=== PATIENT | female | born 1950 | race Caucasian/White ===

== ENCOUNTER 2016-08-25 19:15 | Inpatient (IN) | payer MEDICARE, OTHER ==
[2016-08-25] MEDS ORDERED: NITROGLYCERIN-D5W PMX 50 MG in DEXTROSE/WATER 1 250ML.BAG IV ONE (19:24)
--- NOTE | 2016-08-25 19:30 | ED ---
Chest Pain HPI - General Stated Complaint: Chest pain Time Seen by Provider: 08/25/16 19:15 Source: patient, RN/MD, EMS, RN notes reviewed, old records reviewed Mode of arrival: EMS - History of Present Illness Initial Comments: This is a 66-year-old female with a history of hypertension and hyperlipidemia who started developing left-sided lower sternal pain today at about 9 AM. She states is about 2/10 in severity. She took some aspirin a day give better but then ROM 1:30 today it recurred. Of note she is grieving for the of her 48-year-old daughter from a heart attack in. She also does state his strong cardiac history including her 41-year-old son grandparents and other family members but never her. She was seen at [facility] and workup was started. She was noted have a initial troponin 0.016 a 3 hour repeat was 0.109. Additionally she did have some nonspecific inferior lateral changes were noted there were also nonspecific. Some evidence of LVH noted. The patient was transferred here for further evaluation. She states her pain was about 1/10 in severity she has no other symptoms at this time. Patient does not smoke does not drink alcohol or shoulder pop. MD Complaint: chest pain - Related Data Home Medications Medication Instructions Recorded Confirmed Aspirin EC [Ecotrin Low Dose] 81 mg PO HS 08/25/16 08/25/16 Bisoprolol-Hctz 10-6.25 mg [Ziac 1 tab PO DAILY 08/25/16 08/25/16 10-6.25] Cholecalciferol [Vitamin D3] 2,000 unit PO HS 08/25/16 08/25/16 Folic Acid 1 mg PO DAILY 08/25/16 08/25/16 Niacin 500 mg PO HS 08/25/16 08/25/16 Rosuvastatin Calcium [Crestor] 40 mg PO HS 08/25/16 08/25/16 Ubidecarenone [Co Q-10] 100 mg PO HS 08/25/16 08/25/16 Allergies Allergy/AdvReac Type Severity Reaction Status Date / Time No Known Allergies Allergy Verified 08/25/16 20:00 Review of Systems ROS Statement: Those systems with pertinent positive or pertinent negative responses have been documented in the HPI. ROS Other: All systems not noted in ROS Statement are negative. EKG Findings - EKG Results: EKG: interpreted by CHER, sinus rhythm (Sinus rhythm with a rate of 69 OK interval 138 QRS duration 84 QT/QTC of 46/435 voltage criteria for LVH. No definite acute changes there appears be no change from the 2 EKG submitted from [facility]) General Exam - General Exam Comments Initial Comments: This is a well-developed well-nourished awake alert oriented 3 female General appearance: alert, in no apparent distress Head exam: Present: atraumatic, normocephalic, normal inspection Eye exam: Present: normal appearance, PERRL, EOMI. Absent: scleral icterus, conjunctival injection, periorbital swelling ENT exam: Present: normal exam, mucous membranes moist Neck exam: Present: normal inspection. Absent: tenderness, meningismus, lymphadenopathy Respiratory exam: Present: normal lung sounds bilaterally. Absent: respiratory distress, wheezes, rales, rhonchi, stridor Cardiovascular Exam: Present: regular rate, normal rhythm, normal heart sounds. Absent: systolic murmur, diastolic murmur, rubs, gallop, clicks GI/Abdominal exam: Present: soft, normal bowel sounds. Absent: distended, tenderness, guarding, rebound, rigid Extremities exam: Present: normal inspection, full ROM, normal capillary refill. Absent: tenderness, pedal edema, joint swelling, calf tenderness Back exam: Present: normal inspection Neurological exam: Present: alert, oriented X3, CN II-XII intact Psychiatric exam: Present: normal affect, normal mood Skin exam: Present: warm, dry, intact, normal color. Absent: rash Course Vital Signs 08/25/16 08/25/16 08/25/16 19:15 19:37 19:55 Temperature 98.9 F Pulse Rate 68 60 65 Respiratory 20 16 18 Rate Blood Pressure 207/86 200/90 181/81 O2 Sat by Pulse 98 95 94 L Oximetry 08/25/16 19:57 Temperature Pulse Rate 63 Respiratory 18 Rate Blood Pressure 178/81 O2 Sat by Pulse 95 Oximetry Chest Pain MDM - MDM I did review the charting for about a by the transferring hospital. Patient currently feels good she will be admitted I did discuss case with the hospitalist cardiology will be consulted/ notified Disposition Clinical Impression: Chest pain, Non-ST elevation myocardial infarction (NSTEMI) Disposition: ADMITTED IP TO THIS HOSP Condition: Serious
[2016-08-25] MEDS: HEPARIN SODIUM,PORCINE/D5W PMX 25,000 UNIT in DEXTROSE/WATER 1 500ML.BAG IV SCH (19:52)
[2016-08-25 20:39] LABS: Creatine Kinase MB 5.5 ng/mL (0.0-2.4); Troponin I 0.199 ng/mL (0.000-0.034)
[2016-08-25] MEDS ORDERED: NITROGLYCERIN SL TABS 0.4 MG TAB SUBLINGUAL PRN (21:51)
[2016-08-25] MEDS ORDERED: HEPARIN SODIUM,PORCINE/D5W PMX 25,000 UNIT in DEXTROSE/WATER 1 500ML.BAG IV SCH (22:00)
[2016-08-25] MEDS: SODIUM CHLORIDE 0.9% 1,000 ML IV SCH (22:24)
[2016-08-25] MEDS: NIACIN TR 500 MG CAPSULE.ER PO SCH (22:25)
[2016-08-25] MEDS: ATORVASTATIN 80 MG TAB PO SCH (22:25)
[2016-08-26 01:44] LABS: Creatine Kinase MB 7.1 ng/mL (0.0-2.4); Troponin I 0.59 ng/mL (0.000-0.034)
[2016-08-26 02:35] VITALS: BMI 28.6
[2016-08-26] MEDS ORDERED: HEPARIN SODIUM,PORCINE 5,000 UNIT/ML 1 ML VIAL IV PRN (05:34)
[2016-08-26 07:31] LABS: Cholesterol 215 mg/dL (<200); HDL Cholesterol 52 mg/dL (40-60); Triglycerides 125 mg/dL (<150)
[2016-08-26 08:07] LABS: Creatine Kinase MB 6.8 ng/mL (0.0-2.4); Troponin I 0.801 ng/mL (0.000-0.034)
--- NOTE | 2016-08-26 08:58 | P.CRDCN ---
History of Present Illness Consult date: 08/26/16 Requesting physician: Flip Cagle Consult reason: chest pain Chief complaint: Chest pain History of present illness: This is a 66-year-old female with history of hypertension, hyperlipidemia, strong family history of premature coronary artery disease who was transferred here from [facility]. Patient presented to the hospital there with symptoms of chest discomfort. She states that she had a discomfort in the left side of her chest, she described it as being very uncomfortable, she denies any radiation of the pain, denies any associated shortness of breath , no diaphoresis, no nausea. She initially felt that her blood pressure may be up, spoke with her physician to see if she could take an extra blood pressure pill, but she was instructed to go to the emergency room for further evaluation. Her EKG on presentation there showed a normal sinus rhythm with no acute changes. WBC 6.9, hemoglobin 14.3, platelets 188, sodium 140, potassium 3.9, chloride 102, CO2 24, BUN 22, creatinine 0.8. Initial troponin 0.016, 0.1 , 0.9 because of the abnormal troponins, patient was advised transfer to [facility] cardiology consultation. Patient has been under considerable amount of stress recently, her daughter has been quite sick and recently . Blood pressure on arrival here 207/86, heart rate in the 60s, 98% on room air. The pressure this morning 138/60 with heart rate in the 60s. Patient is afebrile. EKG on arrival here showed normal sinus rhythm with no acute changes. At the time of my examination this morning, patient is currently chest pain-free. Past Medical History Past Medical History: Hyperlipidemia, Hypertension, Osteoarthritis (OA) History of Any Multi-Drug Resistant Organisms: None Reported Past Surgical History: Section, Tubal Ligation Additional Past Surgical History / Comment(s): c-sect x 2 Past Anesthesia/Blood Transfusion Reactions: No Reported Reaction Past Psychological History: No Psychological Hx Reported Smoking Status: Never smoker Past Alcohol Use History: Occasional Past Drug Use History: None Reported - Past Family History Father Family Medical History: Myocardial Infarction (DE) Additional Family Medical History / Comment(s): at age 47 from a DE Mother Family Medical History: Myocardial Infarction (DE) Additional Family Medical History / Comment(s): at age 78 from a DE Brother(s) Family Medical History: Coronary Artery Disease (CAD), Myocardial Infarction (DE ) Additional Family Medical History / Comment(s): CABG Sister(s) Family Medical History: Hyperlipidemia Medications and Allergies Home Medications Medication Instructions Recorded Confirmed Type Aspirin EC [Ecotrin Low Dose] 81 mg PO HS 08/25/16 08/25/16 History Bisoprolol-Hctz 10-6.25 mg [Ziac 1 tab PO DAILY 08/25/16 08/25/16 History 10-6.25] Cholecalciferol [Vitamin D3] 2,000 unit PO HS 08/25/16 08/25/16 History Folic Acid 1 mg PO DAILY 08/25/16 08/25/16 History Niacin 500 mg PO HS 08/25/16 08/25/16 History Rosuvastatin Calcium [Crestor] 40 mg PO HS 08/25/16 08/25/16 History Ubidecarenone [Co Q-10] 100 mg PO HS 08/25/16 08/25/16 History Allergies Allergy/AdvReac Type Severity Reaction Status Date / Time No Known Allergies Allergy Verified 08/25/16 20:00 Physical Exam Vitals: Vital Signs Temp Pulse Pulse Resp BP BP Pulse Ox 08/26/16 07:40 98.3 F 65 18 138/59 95 08/26/16 03:01 97.3 F L 60 16 131/58 94 L 08/26/16 02:08 74 16 143/83 97 08/26/16 01:45 98.0 F 61 16 147/78 97 08/25/16 23:16 56 L 16 145/73 97 08/25/16 22:28 97.9 F 59 L 16 158/76 97 Intake and Output 08/25/16 08/26/16 08/26/16 22:59 06:59 14:59 Intake Total 153.855 Output Total 0 Balance 153.855 0 Intake: Intake, IV Titration 153.855 Amount Heparin Sodium,Porcine/ 153.855 D5w Pmx 25,000 unit In Dextrose/Water 1 500ml. bag @ 12 UNITS/KG/HR 15. 78 mls/hr IV .Q24H ALLI Rx #:[id number] Output: Stool 0 Other: Voiding Method Toilet # Voids 1 1 Weight 66.5 kg PHYSICAL EXAMINATION: HEENT: Head is atraumatic, normocephalic. Pupils equal, round. Neck is supple. There is no elevated jugular venous pressure. HEART EXAMINATION: Heart S1, S2 systolic murmur is heard. No murmur or gallop heard. CHEST EXAMINATION: Lungs reveal fine crackles to bilateral bases posteriorly. ABDOMEN: Soft, nontender. Bowel sounds are heard. No organomegaly noted. EXTREMITIES: 2+ peripheral pulses with no evidence of peripheral edema and no calf tenderness noted. NEUROLOGIC patient is awake, alert and oriented -3. . Results Cardiac Enzymes 08/26/16 08/26/16 Range/Units 00:46 06:36 CK-MB (CK-2) 7.1 H* 6.8 H* (0.0-2.4) ng/mL Troponin I 0.590 H* 0.801 H* (0.000-0.034) ng/mL Coagulation 08/26/16 Range/Units 03:02 APTT 38.8 H (22.0-30.0) sec Lipids 08/26/16 Range/Units 06:36 Triglycerides 125 (<150) mg/dL Cholesterol 215 H (<200) mg/dL HDL Cholesterol 52 (40-60) mg/dL Current Medications Generic Name Dose Route Start Last Admin Trade Name Freq PRN Reason Stop Dose Admin Aspirin 325 mg 08/26/16 09:00 Aspirin PO DAILY [facility] Atorvastatin Calcium 80 mg 08/25/16 22:00 08/25/16 22:25 Lipitor PO Not Given HS [facility] Bisoprolol Fumarate 1 each 08/26/16 09:00 Ziac 10-6.25 PO DAILY [facility] Heparin Sodium (Porcine) 0 unit 08/26/16 05:34 Heparin IV PER PROTOCOL PRN Low PTT Protocol Heparin Sodium/Dextrose 25,000 500 mls @ 15.78 mls/hr 08/25/16 19:30 05:37 unit/ IV Solution IV 15 units/kg/hr .Q24H ALLI 19.73 mls/hr Protocol Titration 12 UNITS/KG/HR Nitroglycerin/Dextrose 50 mg/ 250 mls @ 1.5 mls/hr 08/25/16 19:24 08/25/16 19 :36 IV Solution IV 08/26/16 19:23 5 mcg/min .Q24H ONE 1.5 mls/hr Protocol Administration 5 MCG/MIN Sodium Chloride 1,000 mls @ 20 mls/hr 08/25/16 22:00 08/25/16 22:24 Saline 0.9% IV 20 mls/hr .Q24H ALLI Administration Niacin 500 mg 08/25/16 22:00 08/25/16 22:25 Niacin Tr PO 500 mg HS ALLI Administration Nitroglycerin 0.4 mg 08/25/16 21:51 Nitrostat SUBLINGUAL Q5M PRN Chest Pain Intake and Output 08/25/16 08/26/16 08/26/16 22:59 06:59 14:59 Intake Total 153.855 Output Total 0 Balance 153.855 0 Intake: Intake, IV Titration 153.855 Amount Heparin Sodium,Porcine/ 153.855 D5w Pmx 25,000 unit In Dextrose/Water 1 500ml. bag @ 12 UNITS/KG/HR 15. 78 mls/hr IV .Q24H ALLI Rx #:[id number] Output: Stool 0 Other: Voiding Method Toilet # Voids 1 1 Weight 66.5 kg EKG Interpretations (text) EKG shows normal sinus rhythm with no acute changes. Assessment and Plan Plan: Assessment and plan #1 chest pain, suggestive of acute coronary syndrome. Troponins 0.016, 0.109, 0.199, 0.59, 0.8. EKG shows normal sinus rhythm with no acute changes. #2 hypertensive urgency #3 history of hypertension #4 hyperlipidemia #5 strong family history of premature coronary artery disease Plan We will obtain a stat echocardiogram with Doppler study. Continue IV heparin and nitro drip. Continue aspirin, Lipitor, resume the patient's bisoprolol hydrochlorothiazide. Patient was advised to undergo cardiac catheterization, the risks and the benefits were explained to the patient in detail. This will be performed today by Dr. Clifford Rene. DNP note has been reviewed, I agree with a documented findings and plan of care. Patient was seen and examined.
--- NOTE | 2016-08-26 09:13 | XR ---
EXAMINATION TYPE: XR chest 1V portable DATE OF EXAM: 08/26/2016 9:08 AM Comparison: 08/25/2016 Clinical History: 66-year-old female chest pain Findings: The cardiomediastinal silhouette, aorta, and pulmonary vasculature are within normal limits. Mild in terstitial prominence has a chronic appearance. Otherwise, lungs and pleural spaces are clear. Impression: Chronic-appearing changes without acute cardiopulmonary process.
[2016-08-26] MEDS: ASPIRIN 325 MG TAB PO SCH (09:56)
[2016-08-26] MEDS: BISOPROLOL-HCTZ 10-6.25 MG 1 EACH TAB PO SCH (09:56)
--- NOTE | 2016-08-26 10:12 | ECHOF ---
Referral Reason:Non-ST elevation myocardial infarction MEASUREMENTS -------- HEIGHT: 154.9 cm WEIGHT: 66.2 kg BP: 131/58 IVSd: 1.2 cm (0.6 - 1.1) LVIDd: 2.2 cm (3.9 - 5.3) LVPWd: 1.1 cm (0.6 - 1.1) IVSs: 1.5 cm LVIDs: 1.4 cm LVPWs: 1.4 cm Ao Diam: 2.7 cm (2.0 - 3.7) AV Cusp: 1.5 cm (1.5 - 2.6) LA Diam: 2.9 cm (2.7 - 3.8) MV EXCURSION: 11.540 mm (> 18.000) MV EF SLOPE: 38 mm/s (70 - 150) EPSS: 0.2 cm MV E Anderson: 0.70 m/s MV DecT: 231 ms MV A Anderson: 0.86 m/s MV E/A Ratio: 0.82 AR PHT: 589 ms RAP: 5.00 mmHg RVSP: 9.27 mmHg FINDINGS -------- Sinus rhythm. This was a technically good study. There is borderline concentric left ventricular hypertrophy. Overall left ventricular systolic function is normal with, an EF between 55 - 60 %. The right ventricle is normal in size and function. The left atrium is normal in size. The right atrium is normal in size. Aortic valve is trileaflet and is mildly thickened. There is mild aortic regurgitation. The mitral valve leaflets are mildly thickened. There is trace mitral regurgitation. Trace tricuspid regurgitation present. The right ventricular systolic pressure, as measured by Doppler, is 9.27mmHg. Pulmonic valve appears structurally normal. The aortic root size is normal. The pericardium is normal. CONCLUSIONS -------- 1. Sinus rhythm. 2. The mitral valve leaflets are mildly thickened. 3. There is trace mitral regurgitation. 4. Trace tricuspid regurgitation present. 5. The right ventricular systolic pressure, as measured by Doppler, is 9.27mmHg. 6. Pulmonic valve appears structurally normal. 7. The aortic root size is normal. 8. The pericardium is normal. 9. This was a technically good study. 10. There is borderline concentric left ventricular hypertrophy. 11. Overall left ventricular systolic function is normal with, an EF between 55 - 60 %. 12. The right ventricle is normal in size and function. 13. The left atrium is normal in size. 14. The right atrium is normal in size. 15. Aortic valve is trileaflet and is mildly thickened. 16. There is mild aortic regurgitation. SUPPLY COORDINATOR: Dulce Jackson RDCS
[2016-08-26] MEDS ORDERED: ALPRAZolam 0.25 MG TAB PO PRN (10:54)
[2016-08-26] MEDS ORDERED: NITROGLYCERIN SL TABS 0.4 MG TAB SUBLINGUAL PRN (10:54)
[2016-08-26] MEDS ORDERED: SODIUM CHLORIDE 0.9% 1,000 ML in EMPTY BAG 1 BAG IV ONE (10:54)
[2016-08-26] MEDS ORDERED: ASPIRIN 325 MG TAB PO STA (10:54)
[2016-08-26] MEDS ORDERED: ATORVASTATIN 80 MG TAB PO STA (10:54)
[2016-08-26] MEDS ORDERED: ALPRAZolam 0.5 MG TAB PO PRN (10:54)
--- NOTE | 2016-08-26 15:44 | HP ---
DATE OF ADMISSION: 08/25/2016 The patient is a pleasant 66-year-old female history of hypertension came in with highly elevated blood pressure from [facility] and complaints of chest discomfort which started yesterday. About 5/10 in severity in the retrosternal area and left side of the chest area and denied any associated shortness of breath. Denied any radiation. Pain lasted until today. Patient is on nitroglycerin drip with well-controlled blood pressures at this point of time. Her blood pressure improved with looks like improved with nitroglycerin. Patient has elevated troponins and she came in was 0.1, now around 0.8 and without any significant EKG changes. Normal kidney function. Patient was evaluated by cardiology. Patient is going for cardiac catheterization today. Patient has well controlled blood pressures at this point of time and is on IV nitroglycerin as mentioned above. ROS: All other systems were reviewed and were negative. PAST MEDICAL HISTORY: Hyperlipidemia, hypertension, osteoarthritis, and section, tubal ligation surgery. SOCIAL HISTORY: Denied any smoking, alcohol abuse or drug abuse. FAMILY HISTORY: Father had myocardial infarction, at age 47 with myocardial infarction and mother had myocardial infarction at age 78 and history of hyperlipidemia in other family members. Home medications include: 1. Aspirin. 2. ( ). 3. Hydrochlorothiazide 4. Cholecalciferol. 5. Folic acid. 6. Niacin. 7. Lovastatin. 8. ( ). ALLERGIES: No known drug allergies. PHYSICAL EXAMINATION: VITAL SIGNS: Temperature 97.9, pulse of 61, respiratory rate of 20, blood pressure is 127/77, saturating at 92% on room air. GENERAL: The patient is alert and oriented x3, not in any acute distress. Well developed, well nourished. HEENT: Pupils are round and equally reacting to light. EOMI. No scleral icterus. No conjunctival pallor. Normocephalic, atraumatic. No pharyngeal erythema. No thyromegaly. CARDIOVASCULAR: S1 and S2 present. No murmurs, rubs, or gallops. PULMONARY: Chest is clear to auscultation, no wheezing or crackles. ABDOMEN: Soft, nontender, nondistended, normoactive bowel sounds. No palpable organomegaly. MUSCULOSKELETAL: No joint swelling or deformity. EXTREMITIES: No cyanosis, clubbing, or pedal edema. NEUROLOGICAL: Gross neurological examination did not reveal any focal deficits. SKIN: No rashes. LABORATORY DATA: Laboratory data from [facility] was reviewed that showed normal kidney function. Troponins are already dictated. Chest x-ray did not show any acute process. Home medications includin. ( ). 2. ( ). 3. Niacin. 4. Folic acid. 5. Cholecalciferol. 6. ( ). 7. Hydrochlorothiazide. 8. Aspirin. ASSESSMENT AND PLAN: 1. [id number] myocardial infarction. The patient is on heparin drip. Patient is going for cardiac catheterization later today and continue with nitroglycerin drip. 2. Hypertensive emergency. Patient is on nitroglycerin drip with well-controlled blood pressures. 3. Hyperlipidemia. PLAN: As mentioned in the assessment. MTDD
[2016-08-26] MEDS: ATORVASTATIN 80 MG TAB PO SCH (16:02)
[2016-08-26] MEDS: HEPARIN SODIUM,PORCINE/D5W PMX 25,000 UNIT in DEXTROSE/WATER 1 500ML.BAG IV SCH (21:30)
[2016-08-27] MEDS: NIACIN TR 500 MG CAPSULE.ER PO SCH (00:02)
[2016-08-27] MEDS: BISOPROLOL-HCTZ 10-6.25 MG 1 EACH TAB PO SCH (06:01)
[2016-08-27] MEDS: ASPIRIN 325 MG TAB PO SCH (06:01)
[2016-08-27] MEDS: SODIUM CHLORIDE 0.9% 1,000 ML IV SCH (06:02)
[2016-08-27 06:39] LABS: CHCM 33.2; HCT 43.5 % (34.0-46.0); HDW 2.52; HGB 13.6 gm/dL (11.4-16.0); MCH 27.4 pg (25.0-35.0); MCHC 31.2 g/dL (31.0-37.0); MCV 87.8 fL (80.0-100.0); Mean Platelet Volume 7.5; RBC 4.96 m/uL (3.80-5.40); RDW 13.3 % (11.5-15.5)
[2016-08-27 07:20] LABS: Anion Gap 10 mmol/L; Blood Urea Nitrogen 18 mg/dL (7-17); Calcium 9.4 mg/dL (8.4-10.2); Carbon Dioxide 22 mmol/L (22-30); Chloride 106 mmol/L (98-107); Glucose 156 mg/dL (74-99); Non-African American GFR(MDRD) >60 (>60 ml/min/1.73 sqM); Sodium 138 mmol/L (137-145)
[2016-08-27] MEDS ORDERED: LIDOCAINE 2% INJ 20 MG/ML (20 ML MDV) ONE (09:15)
[2016-08-27] MEDS ORDERED: MIDAZOLAM 2 MG/2 ML VIAL ONE (09:15)
[2016-08-27] MEDS ORDERED: VERAPAMIL 2.5 MG/ML 2 ML AMP ONE (09:15)
[2016-08-27] MEDS ORDERED: diphenhydrAMINE 50 MG/ML 1 ML VIAL ONE (09:15)
[2016-08-27] MEDS ORDERED: diphenhydrAMINE 50 MG/ML 1 ML VIAL IVP ONE (09:50)
[2016-08-27] MEDS ORDERED: MIDAZOLAM 2 MG/2 ML VIAL IVP ONE (09:50)
[2016-08-27] MEDS ORDERED: IV FLUID CONTINUATION 900 ML IV ONE (09:51)
[2016-08-27] MEDS ORDERED: HEPARIN SODIUM 1,000 UNIT/ML VIAL ONE (09:53)
[2016-08-27] MEDS ORDERED: LIDOCAINE 2% INJ 20 MG/ML SQ ONE (09:56)
[2016-08-27] MEDS ORDERED: VERAPAMIL SYRINGE (5 MG/10 ML) INTRAARTER ONE (09:58)
[2016-08-27] MEDS ORDERED: HEPARIN SODIUM 1,000 UNIT/ML VIAL IV ONE (09:58)
[2016-08-27] MEDS ORDERED: IOHEXOL 350 MG/ML 100 ML BOTTLE INJ ONE (10:09)
[2016-08-27] MEDS ORDERED: RX INFO: IV CONTRAST WAS GIVEN 1 EACH MISC MISCELLANE PRN (10:21)
[2016-08-27] MEDS ORDERED: SODIUM CHLORIDE 0.9% 1,000 ML IV SCH (10:30)
[2016-08-27] MEDS ORDERED: METOPROLOL TARTRATE 25 MG TAB PO SCH (10:30)
[2016-08-27 12:19] VITALS: TEMP 97.5
[2016-08-27 16:47] VITALS: BP 141/75; PULSE 64; RESP 18
[2016-08-27] MEDS ORDERED: CHOLECALCIFEROL 1,000 UNIT TAB PO SCH (21:00)
[2016-08-27] MEDS ORDERED: ASPIRIN 81 MG CHEW PO SCH (21:00)
[2016-08-27] MEDS ORDERED: NON-FORMULARY DRUG (Ubidecarenone [Co Q-10] 100 MG) PO SCH (21:00)
--- NOTE | 2016-08-28 07:27 | CC ---
DATE OF SERVICE: 08/27/2016 PROCEDURE: Left heart catheterization, coronary angiography and left ventriculography. PERFORMED BY: Dr. Jb Rene. CLINICAL INFORMATION: Mrs. Dominga Corbett is a 66-year-old woman who presented to the hospital with episode of chest pain and she was under a lot of stress that was troponin elevation suggestive of [id number] NC. Because of ongoing episodes of chest pain with non-ST elevation type presentation, I recommended coronary angiography. Risks, benefits, options, rationale were explained to the patient. She understood all details and wished to proceed with the procedure. PROCEDURE NOTE: Under local anesthesia and strict aseptic precautions, a 6 Maltese introducer was placed in the right radial artery. Using an Ultimate 1 catheter, I performed selective coronary angiography of both coronary arteries. I used a pigtail catheter to perform left ventriculography. The catheter and sheath were taken out and a vasc band applied per protocol. Good hemostasis was secured. The saturation of the fingers of the right hand was 96%. She was sent to the room in a stable condition. She tolerated the procedure well without complications. CARDIAC CATHETERIZATION FINDINGS: The left ventricular end-diastolic pressure was about 8 to 10 mmHg without any gradient across the aortic valve. LEFT VENTRICULOGRAM: This was performed in 30-degree GOMES projection and revealed left ventricle was of normal size with good systolic function. Ejection fraction of 60% without mitral regurgitation. CORONARY ANGIOGRAPHIC FINDINGS: RIGHT CORONARY ARTERY: This is a heavily calcified vessel that is dominant/codominant. Proximally there is a plaque of 30% to 40%. Midportion is free of significant disease. Distally, there is another 30% to 35% plaque and then bifurcates into PDA and PLV, both of which supply a fair amount of myocardium. There is no significant stenosis in the right coronary artery which has heavy calcification. The calcification is evident in the entire aorta including the aortic arch as well. LEFT MAIN CORONARY ARTERY: A short, patent, disease-free vessel that bifurcates into LAD and circumflex. There is mild calcification in the left main as well. LEFT ANTERIOR DESCENDING CORONARY ARTERY: Good caliber vessel extends along the anterior wall, gives off septal and diagonal branches, runs all the way to the apex, supplies a sizable amount of myocardium. There is a mild diffuse plaque in the distal one third of the vessel but overall no critical stenosis is noted. LEFT POSTERIOR CIRCUMFLEX CORONARY ARTERY: Technically a nondominant vessel of a fair caliber in distribution that predominantly continues as an obtuse marginal and also gives off a groove branch. There is about a 30% to 40% mild irregularity with calcified plaque, but no significant stenosis noted. The flow appears to be quite brisk. 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 Normal filling pressures and normal systolic function was noted. Patient has probably a right dominant system. RECOMMENDATIONS: Findings were discussed with the patient and I advised her aggressive medical therapy with risk factor modification but no intervention at this time. She will be discharged later on today if she remains stable.
--- NOTE | 2016-08-28 08:15 | DS ---
DATE OF ADMISSION: 08/25/2016 DATE OF DISCHARGE: 08/27/2016 A 66-year-old admitted secondary to highly elevated blood pressure and patient has elevated troponins and chest pain. Patient underwent cardiac catheterization, which did not show any stentable stenosis, although there is some significant calcification and ( ) vascular disease because of which cardiology is recommending metoprolol upon discharge. Patient is already on statin and patient is also being started on aspirin at this point of time. Patient's chest pain is most probably related to her anxiety. The patient was seen and examined on the day of discharge. Vitals are stable. PHYSICAL EXAMINATION: GENERAL: The patient is alert and oriented x3, not in any acute distress. Well developed, well nourished. HEENT: Pupils are round and equally reacting to light. EOMI. No scleral icterus. No conjunctival pallor. Normocephalic, atraumatic. No pharyngeal erythema. No thyromegaly. CARDIOVASCULAR: S1 and S2 present. No murmurs, rubs, or gallops. PULMONARY: Chest is clear to auscultation, no wheezing or crackles. ABDOMEN: Soft, nontender, nondistended, normoactive bowel sounds. No palpable organomegaly. MUSCULOSKELETAL: No joint swelling or deformity. EXTREMITIES: No cyanosis, clubbing, or pedal edema. NEUROLOGICAL: Gross neurological examination did not reveal any focal deficits. SKIN: No rashes. ASSESSMENT AND PLAN: 1. Chest pain, ruled out [id number] myocardial infarction. Patient's chest pain is probably due to elevated blood pressures and anxiety. 2. Hypertension. 3. Hyperlipidemia. Please refer to my depart summary for details of discharge medications. Activity as tolerated. Cardiac diet. Patient will be discharged home and follow with her primary care provider, Dominga June and Dr. Jb Rene on the 02 September at 9:15 a.m. Spent greater than 35 minutes in total discharge process.
[2016-08-28] MEDS ORDERED: ASPIRIN 81 MG CHEW PO SCH (09:00)
[2016-08-28] MEDS ORDERED: FOLIC ACID 1 MG TAB PO SCH (12:00)
== END 2016-08-27 18:35 | disposition home or self-care (01) | DRG 287 ==
LOC: EC 19:15 → 6SEL 21:51
PROVIDERS: ADMIT Internal Medicine; ATTEND Internal Medicine
PROC: B2111ZZ Fluoroscopy of Multiple Coronary Arteries using Low Osmolar Contrast (ICD-10-PCS; 2016-08-27)
PROC: B2151ZZ Fluoroscopy of Left Heart using Low Osmolar Contrast (ICD-10-PCS; 2016-08-27)
PROC: 4A023N7 Measurement of Cardiac Sampling and Pressure, Left Heart, Percutaneous Approach (ICD-10-PCS; principal; 2016-08-27 09:04)
DX: I16.1 Hypertensive emergency (principal); E78.5 Hyperlipidemia, unspecified; I10 Essential (primary) hypertension; F41.9 Anxiety disorder, unspecified; I16.0 Hypertensive urgency; M19.90 Unspecified osteoarthritis, unspecified site; R07.89 Other chest pain; Z79.899 Other long term (current) drug therapy; Z79.82 Long term (current) use of aspirin; Z82.49 Family history of ischemic heart disease and other diseases of the circulatory system
CPT/HCPCS: 36415; 71010; 80048; 80061; 82550; 82553; 84484; 85027; 85730; 93005; 93306; 93458; 96365; 96366; 96367; 99285

== ENCOUNTER 2018-09-15 00:42 | Emergency (ER) | payer MEDICARE, OTHER ==
[2018-09-15 00:50] VITALS: RESP 20
[2018-09-15] MEDS ORDERED: LABETALOL SYRINGE 5 MG/ML IVP STA (01:09)
[2018-09-15] MEDS ORDERED: SODIUM CHLORIDE 0.9% 1,000 ML IV STA (01:09)
--- NOTE | 2018-09-15 01:16 | ED ---
Recheck HPI - General Source: patient, RN notes reviewed, old records reviewed Mode of arrival: ambulatory Limitations: no limitations <Marsha Diego - Last Filed: 09/15/18 02:30> <Negar Mancini - Last Filed: 09/15/18 03:06> - General Chief Complaint: Recheck/Abnormal Lab/Rx Stated Complaint: High Blood Pressure Time Seen by Provider: 09/15/18 00:53 - History of Present Illness Initial Comments: Patient is a 68-year-old female presents emergency department today for evaluation for high blood pressure. She reports that she was recently changed from her 3 blood pressure medications of metoprolol, hydrochlorothiazide and losartan down to 1 increased dose of losartan. She reports that she switch this dose the past 2 days. She is told to do so by her PCP. Patient complains of elevated blood pressure today. She denies any symptoms associated with this including headache, chest pain shortness of breath. (Marsha Diego) - Related Data Home Medications Medication Instructions Recorded Confirmed Aspirin EC [Ecotrin Low Dose] 81 mg PO HS 08/25/16 08/25/16 Bisoprolol-Hctz 10-6.25 mg [Ziac 1 tab PO DAILY 08/25/16 08/25/16 10-6.25 MG] Cholecalciferol [Vitamin D3] 2,000 unit PO HS 08/25/16 08/25/16 Folic Acid 1 mg PO DAILY 08/25/16 08/25/16 Niacin 500 mg PO HS 08/25/16 08/25/16 Rosuvastatin Calcium [Crestor] 40 mg PO HS 08/25/16 08/25/16 Ubidecarenone [Co Q-10] 100 mg PO HS 08/25/16 08/25/16 Previous Rx's Medication Instructions Recorded Metoprolol Tartrate [Lopressor] 25 mg PO BID #90 tab 08/27/16 Allergies Allergy/AdvReac Type Severity Reaction Status Date / Time No Known Allergies Allergy Verified 09/15/18 00:50 Review of Systems ROS Other: All systems not noted in ROS Statement are negative. <Marsha Diego - Last Filed: 09/15/18 02:30> ROS Other: All systems not noted in ROS Statement are negative. <Negar Mancini - Last Filed: 09/15/18 03:06> ROS Statement: Those systems with pertinent positive or pertinent negative responses have been documented in the HPI. Past Medical History Past Medical History: Hyperlipidemia, Hypertension, Osteoarthritis (OA) History of Any Multi-Drug Resistant Organisms: None Reported Past Surgical History: Section, Tubal Ligation Additional Past Surgical History / Comment(s): c-sect x 2 Past Anesthesia/Blood Transfusion Reactions: No Reported Reaction Past Psychological History: No Psychological Hx Reported Smoking Status: Never smoker Past Alcohol Use History: Occasional Past Drug Use History: None Reported - Past Family History Father Family Medical History: Myocardial Infarction ([place]) Additional Family Medical History / Comment(s): at age 47 from a [place] Mother Family Medical History: Myocardial Infarction ([place]) Additional Family Medical History / Comment(s): at age 78 from a [place] Brother(s) Family Medical History: Coronary Artery Disease (CAD), Myocardial Infarction ([place]) Additional Family Medical History / Comment(s): CABG Sister(s) Family Medical History: Hyperlipidemia <Marsha Diego - Last Filed: 09/15/18 02:30> General Exam Limitations: no limitations General appearance: alert, in no apparent distress Head exam: Present: atraumatic, normocephalic, normal inspection Eye exam: Present: normal appearance, PERRL, EOMI. Absent: scleral icterus, conjunctival injection, periorbital swelling ENT exam: Present: normal exam, mucous membranes moist Neck exam: Present: normal inspection. Absent: tenderness, meningismus, lymphadenopathy Respiratory exam: Present: normal lung sounds bilaterally. Absent: respiratory distress, wheezes, rales, rhonchi, stridor Cardiovascular Exam: Present: regular rate, normal rhythm, normal heart sounds. Absent: systolic murmur, diastolic murmur, rubs, gallop, clicks GI/Abdominal exam: Present: soft, normal bowel sounds. Absent: distended, tenderness, guarding, rebound, rigid Extremities exam: Present: normal inspection, full ROM, normal capillary refill. Absent: tenderness, pedal edema, joint swelling, calf tenderness Back exam: Present: normal inspection Neurological exam: Present: alert, oriented X3, CN II-XII intact Psychiatric exam: Present: normal affect, normal mood Skin exam: Present: warm <Marsha Diego - Last Filed: 09/15/18 02:30> - General Exam Comments Initial Comments: 68-year-old female. Alert. No distress. (Marsha Diego) Course Vital Signs 09/15/18 09/15/18 09/15/18 00:46 01:00 01:10 Temperature 98.1 F Pulse Rate 108 H 98 101 H Respiratory 20 Rate Blood Pressure 225/89 O2 Sat by Pulse 97 97 94 L Oximetry 09/15/18 09/15/18 09/15/18 01:20 01:30 01:40 Temperature Pulse Rate 97 90 93 Respiratory Rate Blood Pressure 179/94 O2 Sat by Pulse 98 97 96 Oximetry 09/15/18 09/15/18 09/15/18 01:50 02:00 02:10 Temperature Pulse Rate 75 76 75 Respiratory Rate Blood Pressure 163/94 163/94 155/84 O2 Sat by Pulse 93 L 92 L 92 L Oximetry 09/15/18 09/15/18 09/15/18 02:20 02:30 02:40 Temperature Pulse Rate 76 75 74 Respiratory Rate Blood Pressure 159/88 159/88 159/85 O2 Sat by Pulse 94 L 92 L 94 L Oximetry 09/15/18 02:50 Temperature Pulse Rate 73 Respiratory Rate Blood Pressure 159/98 O2 Sat by Pulse 93 L Oximetry Medical Decision Making - Lab Data Result diagrams: 09/15/18 01:19 09/15/18 01:19 - Radiology Data Radiology results: report reviewed <Marsha Diego - Last Filed: 09/15/18 02:30> - Lab Data Result diagrams: 09/15/18 01:19 09/15/18 01:19 <Negar Mancini - Last Filed: 09/15/18 03:06> - Medical Decision Making 68-year-old female presents emergency department today for complaints of high blood pressure. Patient had his blood pressure medication decreased. Patient had EKG and blood are obtained. EKG shows no acute changes. Blood work including troponin are negative. Chest x-ray is normal. No evidence of thoracic aneurysm. Patient is given labetalol. Patient blood pressure stablized afterward. Discussed she needs to resume her metoprolol daily. Discussed following up with her PCP in regards to blood pressure management. All questions answered. (Marsha Diego) I was available for consultation in the emergency department. The history and physical exam were done by the midlevel provider. I was consulted for this patient's care. I reviewed the case with the midlevel provider and based on their presentation of the patient, I agree with the assessment, medical decision making and plan of care as documented. Chart was dictated using [employer] dictation software. Attempts were made to correct any dictation errors however some typographical errors may persist. (Negar Mancini) - Lab Data Lab Results 09/15/18 09/15/18 09/15/18 Range/Units 01:19 01:19 :19 WBC 6.8 (3.8-10.6) k/uL RBC 5.30 (3.80-5.40) m/uL Hgb 14.6 (11.4-16.0) gm/dL Hct 44.5 (34.0-46.0) % MCV 83.8 (80.0-100.0) fL MCH 27.4 (25.0-35.0) pg MCHC 32.7 (31.0-37.0) g/dL RDW 13.7 (11.5-15.5) % Plt Count 209 (150-450) k/uL Neutrophils % 63 % Lymphocytes % 24 % Monocytes % 6 % Eosinophils % 2 % Basophils % 1 % Neutrophils # 4.3 (1.3-7.7) k/uL Lymphocytes # 1.6 (1.0-4.8) k/uL Monocytes # 0.4 (0-1.0) k/uL Eosinophils # 0.2 (0-0.7) k/uL Basophils # 0.1 (0-0.2) k/uL PT 9.9 (9.0-12.0) sec INR 0.9 (<1.2) APTT 22.4 (22.0-30.0) sec Sodium 139 (137-145) mmol/L Potassium 3.9 (3.5-5.1) mmol/L Chloride 105 (98-107) mmol/L Carbon Dioxide 21 L (22-30) mmol/L Anion Gap 13 mmol/L BUN 21 H (7-17) mg/dL Creatinine 0.59 (0.52-1.04) mg/dL Est GFR (CKD-EPI)AfAm >90 (>60 ml/min/1.73 sqM) Est GFR (CKD-EPI)NonAf >90 (>60 ml/min/1.73 sqM) Glucose 160 H (74-99) mg/dL Calcium 10.1 (8.4-10.2) mg/dL Magnesium 2.0 (1.6-2.3) mg/dL Total Bilirubin 0.7 (0.2-1.3) mg/dL AST 36 (14-36) U/L ALT 57 H (9-52) U/L Alkaline Phosphatase 145 H (38-126) U/L Troponin I (0.000-0.034) ng/mL Total Protein 7.7 (6.3-8.2) g/dL Albumin 4.9 (3.5-5.0) g/dL 09/15/18 Range/Units 01:19 WBC (3.8-10.6) k/uL RBC (3.80-5.40) m/uL Hgb (11.4-16.0) gm/dL Hct (34.0-46.0) % MCV (80.0-100.0) fL MCH (25.0-35.0) pg MCHC (31.0-37.0) g/dL RDW (11.5-15.5) % Plt Count (150-450) k/uL Neutrophils % % Lymphocytes % % Monocytes % % Eosinophils % % Basophils % % Neutrophils # (1.3-7.7) k/uL Lymphocytes # (1.0-4.8) k/uL Monocytes # (0-1.0) k/uL Eosinophils # (0-0.7) k/uL Basophils # (0-0.2) k/uL PT (9.0-12.0) sec INR (<1.2) APTT (22.0-30.0) sec Sodium (137-145) mmol/L Potassium (3.5-5.1) mmol/L Chloride (98-107) mmol/L Carbon Dioxide (22-30) mmol/L Anion Gap mmol/L BUN (7-17) mg/dL Creatinine (0.52-1.04) mg/dL Est GFR (CKD-EPI)AfAm (>60 ml/min/1.73 sqM) Est GFR (CKD-EPI)NonAf (>60 ml/min/1.73 sqM) Glucose (74-99) mg/dL Calcium (8.4-10.2) mg/dL Magnesium (1.6-2.3) mg/dL Total Bilirubin (0.2-1.3) mg/dL AST (14-36) U/L ALT (9-52) U/L Alkaline Phosphatase (38-126) U/L Troponin I <0.012 (0.000-0.034) ng/mL Total Protein (6.3-8.2) g/dL Albumin (3.5-5.0) g/dL - Radiology Data EKG shows sinus tachycardia, voltage criteria for LVH abnormal EKG noted. Ventricular rate of 107 bpm. Verbal is 120 ms. QR Estrace 68 ms. QT QTc is 324/432 ms. (Marsha Diego) Disposition Is patient prescribed a controlled substance at d/c from ED?: No Time of Disposition: 02:35 <Marsha Diego - Last Filed: 09/15/18 02:30> <Negar Mancini - Last Filed: 09/15/18 03:06> Clinical Impression: Hypertension Disposition: HOME SELF-CARE Condition: Good Instructions (If sedation given, give patient instructions): Hypertension (ED) Additional Instructions: Follow-up with primary care doctor. Patient advised to resume Metroprolol dose daily as well as continue to monitor blood pressure. Return to the emergency department if any alarming signs or symptoms occur. Referrals: Sorin Andrea DO [Primary Care Provider] - 1-2 days
[2018-09-15 01:50] LABS: Basophils # (A) 0.1 k/uL (0-0.2); Basophils % (A) 1 %; Eosinophils # (A) 0.2 k/uL (0-0.7); Eosinophils % (A) 2 %; HCT 44.5 % (34.0-46.0); HGB 14.6 gm/dL (11.4-16.0); Lymphocytes # (A) 1.6 k/uL (1.0-4.8); Lymphocytes % (A) 24 %; MCH 27.4 pg (25.0-35.0); MCHC 32.7 g/dL (31.0-37.0); MCV 83.8 fL (80.0-100.0); Mean Platelet Volume 7.7; Monocytes # (A) 0.4 k/uL (0-1.0); Monocytes % (A) 6 %; Neutrophils # (A) 4.3 k/uL (1.3-7.7); Neutrophils % (A) 63 %; Platelet Count 209 k/uL (150-450); RDW 13.7 % (11.5-15.5); WBC 6.8 k/uL (3.8-10.6)
[2018-09-15 01:55] LABS: ALT 57 U/L (9-52); AST 36 U/L (14-36); Albumin 4.9 g/dL (3.5-5.0); Alkaline Phosphatase 145 U/L (38-126); Anion Gap 13 mmol/L; Blood Urea Nitrogen 21 mg/dL (7-17); Calcium 10.1 mg/dL (8.4-10.2); Carbon Dioxide 21 mmol/L (22-30); Chloride 105 mmol/L (98-107); Glucose 160 mg/dL (74-99); Potassium 3.9 mmol/L (3.5-5.1); Sodium 139 mmol/L (137-145); Total Bilirubin 0.7 mg/dL (0.2-1.3); Total Protein 7.7 g/dL (6.3-8.2)
--- NOTE | 2018-09-15 02:04 | XR ---
EXAM: XR Chest, 2 Views CLINICAL HISTORY: Reason: Chest Pain TECHNIQUE: Frontal and lateral views of the chest. COMPARISON: Chest x-ray 08/26/2016 FINDINGS: Lungs: Lungs are clear of focal infiltrates or consolidations. Pleural space: No evidence of pleural effusion or pneumothorax. Heart: Heart size is within normal limits. Mediastinum: Mediastinal structures are unremarkable. Bones/joints: Mild thoracic spine degenerative changes. IMPRESSION: No evidence of acute cardiopulmonary disease.
[2018-09-15 02:22] LABS: INR 0.9 (<1.2); Partial Thromboplastin Time 22.4 sec (22.0-30.0); Prothrombin Time 9.9 sec (9.0-12.0)
[2018-09-15 03:05] VITALS: BP 159/98; PULSE 73
[2018-09-15 03:11] VITALS: TEMP 98.4
== END 2018-09-15 03:00 | disposition home or self-care (01) ==
LOC: EC 00:42
DX: I10 Essential (primary) hypertension (principal); E78.5 Hyperlipidemia, unspecified; Z79.82 Long term (current) use of aspirin; Z79.899 Other long term (current) drug therapy
CPT/HCPCS: 36415; 71046; 80053; 83735; 84484; 85025; 85610; 85730; 93005; 96361; 96374; 99284

== ENCOUNTER → 2022-09-25 | Outpatient (CLI) | payer MEDICARE, OTHER ==
--- NOTE | 2022-09-25 14:37 | XR ---
EXAMINATION TYPE: XR Hip Complete RT DATE OF EXAM: 09/25/2022 2:32 PM INDICATION: Patient age:Female; 72 years old; Reason for study: [id number] LUMBAGO,RT HIP PAIN; [facility]. COMPARISON: None. TECHNIQUE: The right hip was examined in the frontal and lateral projections . FINDINGS: No evidence of any acute osseous pathology, joint dislocation, or soft tissue swelling. IMPRESSION: No acute osseous pathology.
--- NOTE | 2022-09-25 14:39 | XR ---
EXAMINATION TYPE: XR lumbosacral spine min 4V DATE OF EXAM: 09/25/2022 2:32 PM INDICATION: Patient age:Female; 72 years old; Reason for study: [id number] LUMBAGO,RT HIP PAIN; [facility]. COMPARISON: None TECHNIQUE: Frontal, lateral , bilateral oblique and coned in L5-S1 lateral views of the spine. FINDINGS: There are 5 lumbar type vertebral bodies identified. No evidence of any acute osseous patho logy. No evidence of loss of vertebral body height is seen. There is normal alignment of the lumbar vertebral bodies. Multilevel disc space narrowing with endplate sclerosis and anterior osteophytosis. Multilevel facet arthropathy. Vascular sclerosis. Incidental pelvic phleboliths. IMPRESSION: 1. No acute process. 2. Mild degenerative disc disease of the lumbar spine and facet arthropathy.
== END | disposition home or self-care (01) ==
LOC: RADXRYALE 14:14
PROVIDERS: ATTEND Physician Assistant Medical
DX: M51.16 Intervertebral disc disorders with radiculopathy, lumbar region (principal); M47.26 Other spondylosis with radiculopathy, lumbar region; M25.551 Pain in right hip
CPT/HCPCS: 72110; 73502

== ENCOUNTER → 2023-07-26 | Outpatient (CLI) | payer MEDICARE, OTHER ==
--- NOTE | 2023-07-27 10:00 | CA ---
Transthoracic Echo Report Name: Dominga Corbett Age: 73 Gender: F : 1950 Exam Date: 07/26/2023 15:02 Exam Location: [facility] Ht (in): 60 Wt (lb): 150 Ordering Physician: Sorin Andrea DO Attending/Referring Phys: Dominga June PAC Cooler Room Worker Annie Arambula RDCS Procedure CPT: Indications: I10 HTN, E11.65 TYPE 2 DIABETES Cardiac Hx: Technical Quality: Fair Contrast 1: Total Dose (mL): Contrast 2: Total Dose (mL): MEASUREMENTS (Male / Female) Normal Values 2D ECHO LV Diastolic Diameter PLAX 2.7 cm 4.2 - 5.9 / 3.9 - 5.3 cm LV Systolic Diameter PLAX 2.0 cm IVS Diastolic Thickness 1.3 cm 0.6 - 1.0 / 0.6 - 0.9 cm LVPW Diastolic Thickness 1.2 cm 0.6 - 1.0 / 0.6 - 0.9 cm LV Relative Wall Thickness 0.9 RV Internal Dim ED PLAX 2.9 cm LA Volume 42.4 cm??? 18 - 58 / 22 - 52 cm??? LA Volume Index 24.6 cm???/m??? 16 - 28 cm???/m??? M-MODE Aortic Root Diameter MM 2.6 cm LA Systolic Diameter MM 4.1 cm LA Ao Ratio MM 1.5 AV Cusp Separation MM 1.2 cm DOPPLER AI Peak Velocity 390.8 cm/s AI Peak Gradient 61.1 mmHg AI Pressure Half Time 818.9 ms LVOT Peak Velocity 140.4 cm/s LVOT Peak Gradient 7.9 mmHg LVOT Velocity Time Integral 35.5 cm MV Area PHT 2.7 cm??? Mitral E Point Velocity 81.9 cm/s Mitral A Point Velocity 119.1 cm/s Mitral E to A Ratio 0.7 MV Deceleration Time 286.2 ms MV E' Velocity 4.7 cm/s Mitral E to MV E' Ratio 17.3 TR Peak Velocity 217.8 cm/s TR Peak Gradient 19.0 mmHg Right Ventricular Systolic Press 23.8 mmHg FINDINGS Left Ventricle Mildly increased left ventricular wall thickness. Left ventricular cavity size normal. Normal left ventricular systolic function with no obvious regional wall motion abnormalities. Left ventricular ejection fraction is estimated at 55 %. Right Ventricle Normal right ventricular size and function. Right ventricular systolic pressure within normal limits. Right Atrium Normal right atrial size. Left Atrium Normal left atrial size. Mitral Valve Structurally normal mitral valve. Mild mitral annular calcification. No mitral stenosis, regurgitation or prolapse. Aortic Valve Trileaflet aortic valve.. Trace to mild aortic regurgitation. Tricuspid Valve Structurally normal tricuspid valve. Mild tricuspid regurgitation. Pulmonic Valve Structurally normal pulmonic valve. Pericardium No pericardial effusion. Aorta Normal size aortic root and proximal ascending aorta. CONCLUSIONS Normal LV systolic function Aortic sclerosis. The gradient was not checked across aortic valve. No aortic regurgitation Previewed by: Dr. Kyaw Wellington MD (Electronically Signed) Final Date: 27 July 2023 09:59
== END | disposition home or self-care (01) ==
LOC: RADECHMAIN 14:48
PROVIDERS: ATTEND Family Medicine
DX: I10 Essential (primary) hypertension (principal); E11.65 Type 2 diabetes mellitus with hyperglycemia; I70.0 Atherosclerosis of aorta
CPT/HCPCS: 93306

== ENCOUNTER 2024-04-25 08:48 | Day surgery (SDC) | payer MEDICARE, OTHER ==
[2024-04-21 09:35] VITALS: BMI 27.1
[2024-04-25] MEDS: LACTATED RINGERS 1,000 ML IV SCH (10:29)
[2024-04-25] MEDS: LIDOCAINE 1% (10MG/ML) FOR IV START INTRADERMA STA (10:30)
[2024-04-25] MEDS: IV FLUID CONTINUATION 1,000 ML IV ONE ×2 (10:30→11:48)
[2024-04-25 10:45] VITALS: RESP 16; TEMP 97.8
[2024-04-25 10:47] LABS: Glucose,Whole Blood 135 mg/dL (70-110)
[2024-04-25] MEDS ORDERED: PROPOFOL 10 MG/ML 20 ML VIAL IV ONE (11:49)
[2024-04-25] MEDS ORDERED: LIDOCAINE 1% INJ 10MG/ML (20 ML MDV) ONE (11:49)
--- NOTE | 2024-04-25 12:05 | P.PCN ---
Date of Procedure: 04/25/24 Procedure(s) Performed: BRIEF HISTORY: Patient is a 68-year-old pleasant white female scheduled for an elective colonoscopy as a part of screening for colon cancer. PROCEDURE PERFORMED: Colonoscopy with snare polypectomy. PREOPERATIVE DIAGNOSIS: Screening for colon cancer. IV sedation per Anesthesia. PROCEDURE: After informed consent was obtained, the patient, was brought into the endoscopy unit. IV sedation was administered by Anesthesia under continuous monitoring. Digital rectal examination was normal. Initially the Olympus CF-160 flexible video colonoscope was then inserted in the rectum, gradually advanced into the cecum without any difficulty. Careful examination was performed as the scope was gradually being withdrawn. Ileocecal valve and the appendiceal orifice were visualized and appeared normal. Prep was excellent. Mucosa of the cecum had an 8 mm sessile cecal polyp that was removed by cold snare polypectomy. In the hepatic flexure there was a 6 mm polyp that was removed by cold snare polypectomy. Rest of, ascending colon, transverse colon, descending colon, sigmoid colon, and rectum appeared normal. Scattered sigmoid diverticulosis. Retroflexion was performed in the rectum and no lesions were seen. The patient tolerated the procedure well. IMPRESSION: 8 mm cecal polyp status post cold snare polypectomy 6 mm hepatic rectal polyp status post cold snare polypectomy Scattered left-sided diverticulosis RECOMMENDATIONS: Findings of this examination were discussed with the patient as well as her family. She was advised to follow-up with the biopsy results. If the biopsy reveals adenoma she can have repeat colonoscopy in 5 years.
[2024-04-25 12:42] VITALS: BP 123/63; PULSE 62
== END 2024-04-25 13:04 | disposition home or self-care (01) ==
LOC: ORWHC2ENDO 08:48
PROVIDERS: ATTEND Internal Medicine Gastroenterology
DX: Z12.11 Encounter for screening for malignant neoplasm of colon (principal); D12.0 Benign neoplasm of cecum; D12.2 Benign neoplasm of ascending colon; K57.30 Diverticulosis of large intestine without perforation or abscess without bleeding; I10 Essential (primary) hypertension; E11.9 Type 2 diabetes mellitus without complications; E78.5 Hyperlipidemia, unspecified; Z79.84 Long term (current) use of oral hypoglycemic drugs; Z79.899 Other long term (current) drug therapy
CPT/HCPCS: 88305; 45385; J2003; J2704